=== PATIENT | male | born 1995 | race Caucasian/White ===

== ENCOUNTER 2017-09-07 16:10 | Emergency (ER) | payer OTHER ==
[2017-09-07 16:25] VITALS: BP 112/77; PULSE 84; RESP 22; TEMP 98.8; O2SAT 99
--- NOTE | 2017-09-07 17:12 | PD ---
HPI Chief Complaint: Psychiatric Symptoms Time Seen by Provider: 16:41 Travel History International Travel<30 days: No Contact w/Intl Traveler<30days: No Traveled to known affect area: No History of Present Illness HPI 22-year-old male that presents to the ED for evaluation of Centeno act. Patient was Centeno acted at [facility] secondary to suicidal attempt. Per patient she drank alcohol, possible Xanax and cocaine to try to kill himself. Per patient he has done this before. He denies any urinary or bowel movement issues. He denies any cuts. History of anxiety and depression as well as polysubstance abuse. Patient was medically clear at different facility and was sent here for psychiatric evaluation. States that he did this an attempt to end his life. He denies any other medical issues. No allergies to medication. No other medical issues. Patient was seen yesterday at the facility and Centeno acted at the facility. Symptoms appear to have worsened recently secondary to stressors. PFSH Past Medical History Cancer: No Diabetes: No Hiatal Hernia: No Thyroid Disease: No ?: Not Past Surgical History Pacemaker: No Social History Alcohol Use: Yes Tobacco Use: Yes Substance Use: Yes Allergies-Medications (Allergen,Severity, Reaction): Coded Allergies: No Known Allergies (Unverified , 10/23/10) Reported Meds & Prescriptions Reported Meds & Active Scripts Active Review of Systems Except as stated in HPI: all other systems reviewed are Neg Physical Exam Narrative GENERAL: SKIN: Warm and dry. HEAD: Atraumatic. Normocephalic. EYES: Pupils equal and round. No scleral icterus. No injection or drainage. ENT: No nasal bleeding or discharge. Mucous membranes pink and moist. Tongue is midline. No uvula deviation. NECK: Trachea midline. No JVD. CARDIOVASCULAR: Regular rate and rhythm. No murmurs, S3, S4. RESPIRATORY: No accessory muscle use. Clear to auscultation. Breath sounds equal bilaterally. GASTROINTESTINAL: Abdomen soft, non-tender, nondistended. Hepatic and splenic margins not palpable. MUSCULOSKELETAL: Extremities without clubbing, cyanosis, or edema. No obvious deformities. Full range of motion of the upper and lower extremities bilaterally. 2+ pulses bilaterally. NEUROLOGICAL: Awake and alert. No obvious cranial nerve deficits. Motor grossly within normal limits. Five out of 5 muscle strength in the arms and legs. Normal speech. PSYCHIATRIC: Appropriate mood and affect; insight and judgment normal. Data Data Last Documented VS Vital Signs Date Time Temp Pulse Resp B/P (MAP) Pulse Ox O2 Delivery O2 Flow Rate FiO2 09/07/17 16:25 98.8 84 22 112/77 (89) 99 Room Air Orders Orders Diet Regular Basic (09/07/17 Dinner) MDM Medical Decision Making Medical Screen Exam Complete: Yes Emergency Medical Condition: Yes Medical Record Reviewed: Yes Differential Diagnosis Depression versus suicidal ideation versus anxiety versus adjustment disorder versus mood disorder versus bipolar disorder versus schizophrenia versus paranoid disorder versus psychosis versus substance abuse versus alcohol abuse versus alcohol induced psychosis versus homicidality addition versus cutting versus personality disorder Narrative Course 22-year-old male that presents to the ED for evaluation of psych. Patient was properly examined and was found to have signs and symptoms consistent with psychiatric illness. Labs were already done a different facility patient was medically clear at the facility. Patient is medically cleared here. No sign of acute medical distress. Okay to be seen by psych. Mental health screening was discussed with the patient. Diagnosis Primary Impression: Suicide attempt by drug ingestion Qualified Codes: T50.902A - Poisoning by unspecified drugs, medicaments and biological substances, intentional self-harm, initial encounter Willis Jansen Sep 07, 2017 17:12
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
[2017-09-07 22:23] VITALS: BP 110/72; PULSE 79; RESP 16; TEMP 98.8; O2SAT 99
[2017-09-08 02:34] VITALS: BP 99/57; PULSE 66; RESP 18; TEMP 98.4; O2SAT 100
[2017-09-08 06:25] VITALS: BP 99/59; PULSE 65; RESP 17; TEMP 98.9; O2SAT 100
[2017-09-08 10:10] VITALS: BP 98/54; PULSE 59; RESP 20; O2SAT 99
== END 2017-09-08 13:36 ==
LOC: NEPJ 16:10
DX: T50.902A Poisoning by unspecified drugs, medicaments and biological substances, intentional self-harm, initial encounter (principal); F19.94 Other psychoactive substance use, unspecified with psychoactive substance-induced mood disorder; F32.9 Major depressive disorder, single episode, unspecified; F14.10 Cocaine abuse, uncomplicated; F12.10 Cannabis abuse, uncomplicated; Z87.891 Personal history of nicotine dependence
CPT/HCPCS: 99285